=== PATIENT | female | born 1995 | race Two or more races ===

== ENCOUNTER 2024-09-19 07:43 | Emergency (ER) | payer MEDICAID, OTHER ==
[~2024-09-19] VITALS: Ht 162.6 cm; Wt 96.1 kg
[2024-09-19 08:19] VITALS: BP 108/65; PULSE 79; RESP 12; TEMP 98.5; O2SAT 99
--- NOTE | 2024-09-19 08:29 | ED.PDOC ---
MANAGER ANIMAL HPI Comments A 29 YEAR OLD FEMALE PRESENTS TO THE ED WITH COMPLAINT OF VAGINAL SPOTTING DURING . PATIENT STATES SHE IS CURRENTLY ABOUT 6 WEEKS AND BEGAN TO EXPERIENCE VAGINAL SPOTTING EARLY TODAY IN THE MORNING. PATIENT ALSO NOTES SHE HAS MILD PAIN WITH URINATION. PATIENT DENIES HEMATURIA, FLANK PAIN, VAGINAL DISCHARGE, FEVER, CHILLS, SHORTNESS OF BREATH, CHEST PAIN, ABDOMINAL PAIN, NAUSEA, VOMITING, HEADACHE, OR OTHER COMPLAINTS. NO OTHER SYMPTOMS OR MODIFYING FACTORS AT THIS TIME. PATIENT IS ALERT, ORIENTED X 4, AND HAS STEADY GAIT. Chief Complaint: Time Seen by MD: 07:54 Reviewed Notes: Nurses Notes, Medications, Allergies Allergies: Coded Allergies: NO KNOWN ALLERGIES (Unverified , 09/19/24) Information Source: Patient Mode of Arrival: Ambulatory Timing: Days Prehospital treatment: None Severity: Moderate Vaginal Discharge: None Vaginal Lesions: None Bleeding Quality: Bright Red Vaginal Mass: None Onset Of Mass/Bleeding: Unknown Sexual Activity: Last Consensual [place]: Unknown Control: None History of: Current Blood Type: Unknown Symptoms of Possible : None Associated Signs and Symptoms: Vaginal Bleeding (VAGINAL SPOTTING) Past Medical History PAST MEDICAL HISTORY: Denies Surgical History: Denies all surgeries CONVERSION MAN History: No Pertinent CONVERSION MAN History Family History Family History: Reviewed,noncontributory to illness Social History Smoker: Non-Smoker Alcohol: Denies ETOH Use Drugs: Denies Drug Use Lives In: Home Constitutional: denies: chills, diaphoresis, fatigue, fever, malaise, sweats, weakness, others EENTM: denies: blurred vision, double vision, ear bleeding, ear discharge, ear drainage, ear pain, ear ringing, eye pain, eye redness, hearing loss, mouth pain, mouth swelling, nasal discharge, nose bleeding, nose congestion, nose pain, photophobia, tearing, throat pain, throat swelling, voice changes, others Respiratory: denies: cough, hemoptysis, orthopnea, SOB at rest, shortness of breath, SOB with excertion, stridor, wheezing, others Cardiovascular: denies: chest pain, dizzy spells, diaphoresis, Dyspnea on exertion, edema, irregular heart beat, left arm pain, lightheadedness, palpitations, PND, syncope, others Gastrointestinal: denies: abdomen distended, abdominal pain, blood streaked bowels, constipated, diarrhea, dysphagia, difficulty swallowing, hematemesis, melena, nausea, poor appetite, poor fluid intake, rectal bleeding, rectal pain, vomiting, others Genitourinary: reports: abnormal vagina bleeding (VAGINAL SPOTTING), ; denies: burning, dyspareunia, dysuria, flank pain, frequency, hematuria, incontinence, pain, vagina discharge, urgency, others Neurological: denies: dizziness, fainting, headache, left sided numbness, left sided weakness, numbness, paresthesia, pre-existing deficit, right sided numbness, right sided weakness, seizure, speech problems, tingling, tremors, weakness, others Musculoskeletal: denies: back pain, gout, joint pain, joint swelling, muscle pain, muscle stiffness, neck pain, others Integumetry: denies: bruises, change in color, change in hair/nails, dryness, laceration, lesions, lumps, rash, wounds, others Allergic/Immunocompromised: denies: Difficulty Healing, Frequent Infections, Hives, Itching, others Hematologic/Lymphatic: denies: anemia, blood clots, easy bleeding, easy bruising, swollen glands, others Endocrine: denies: excessive hunger, excessive sweating, excessive thirst, excessive urination, flushing, intolerance to cold, intolerance to heat, unexplained weight gain, unexplained weight loss, others Psychiatric: denies: anxiety, bipolar disorder, depression, hopeless, panic disorder, schizophrenia, sleepless, suicidal, others All Other Systems: Reviewed and Negative Physical Exam General Appearance: No Apparent Distress, Normal HEENT: Normal ENT Inspection, PERRL/EOMI, Pharynx Normal, TMs Normal Neck: Full Range of Motion, Non-Tender, Normal, Normal Inspection Respiratory: Chest Non-Tender, Lungs Clear, No Accessory Muscle Use, No Respiratory Distress, Normal Breath Sounds Cardiovascular: No Edema, No JVD, No Murmur, No Gallop, Normal Peripheral Pulses, Regular Rate/Rhythm Breast Exam: Deferred Gastrointestinal: No Organomegaly, Non Tender, No Pulsatile Mass, Normal Bowel Sounds, Soft Genitalia: Deferred Pelvic: Normal External Exam, Vaginal Bleeding (VAGINAL SPOTTING, NO VAGINAL BLEEDING AND BLOOD CLOTS. ) Rectal: Deferred Extremities: No calf tenderness, Normal capillary refill, Normal inspection, Normal range of motion, Non-tender, No pedal edema Musculoskeletal : Apperance: Normal Neurologic: Alert, sequins slinger II-XII nml as Tested, No Motor Deficits, Normal Affect, Normal Mood, No Sensory Deficits Cerebellar Function: Normal Reflexes: Normal Skin: Dry, Normal Color, Warm Peripheral Pulses: 2+ carotid (R), 2+ carotid (L) Lymphatic: No Adenopathy Was a procedure done? Was a procedure done?: No Differential Diagnosis (CONVERSION MAN) Vaginal Bleeding: - Complete, - Incomplete, - Missed, - Threatened, Ectopic , Menorrhagia, UTI, Vaginitis Mass / Lesion: N/A Vaginal Discharge: N/A X-Ray, Labs, Meds, VS Vital Signs Date Time Temp Pulse Resp B/P (MAP) Pulse Ox O2 Delivery O2 Flow Rate FiO2 09/19/24 08:19 98.5 79 12 108/65 (79) 99 98.5 09/19/24 08:19 79 12 99 Room Air 09/19/24 08:06 98.5 79 12 108/65 (79) 99 Lab Test 09/19/24 08:25 09/19/24 08:20 Range/Units White Blood Count 9.2 4.4-10.8 10^3/uL Red Blood Count 4.34 4.0-5.20 10^6/uL Hemoglobin 12.1 L 12.2-16.2 g/dL Hematocrit 36.6 36.0-46.0 % Mean Corpuscular Volume 84.5 80.0-100.0 fL Mean Corpuscular Hemoglobin 28.0 28.0-32.0 pg Mean Corpuscular Hemoglobin Concent 33.1 32.0-36.0 g/dL Red Cell Distribution Width 13.3 11.8-14.3 % Platelet Count 323 140-450 10^3/uL Mean Platelet Volume 8.6 6.9-10.8 fL Neutrophils (%) (Auto) 69.7 37.0-80.0 % Lymphocytes (%) (Auto) 24.7 10.0-50.0 % Monocytes (%) (Auto) 4.8 0.0-12.0 % Eosinophils (%) (Auto) 0.5 0.0-7.0 % Basophils (%) (Auto) 0.3 0.0-2.0 % Neutrophils # (Auto) 6.4 1.6-8.6 10 ^3/uL Lymphocytes # (Auto) 2.3 0.4-5.4 10 ^3/uL Monocytes # (Auto) 0.4 0-1.3 10 ^3/uL Eosinophils # (Auto) 0 0-0.8 10 ^3/uL Basophils # (Auto) 0 0-0.2 10 ^3/uL Nucleated Red Blood Cells 0.1 % Beta HCG, Quantitative 78609.2 H 1.5-4.2 mIU/mL Urine Color Light-yellow Yellow Urine Clarity Clear Clear Urine pH 7.0 5.0-9.0 Urine Specific [place] 1.008 1.001-1.035 Urine Protein Negative Negative Urine Ketones Negative Negative Urine Blood 3+ H Negative /uL Urine Nitrite Negative Negative Urine Bilirubin Negative Negative Urine Urobilinogen Normal Negative mg/dL Urine Leukocyte Esterase Negative Negative /uL Urine RBC 1 0 - 4 /hpf Urine WBC 1 0 - 5 /hpf Urine Squamous Epithelial Cells Few <5 /hpf Urine Bacteria Few H None Seen /hpf Urine Glucose Normal Normal mg/dL INDICATION: Vaginal spotting TECHNIQUE: Multiple real-time grayscale transabdominal sonographic images along with color and duplex Doppler of the uterus and ovaries were obtained. COMPARISON: None FINDINGS: The uterus measures 11.6 x 6.2 x 5.1 cm. Small gestational sac and yolk sac seen, corresponding to an estimated gestational age of 5 weeks 3 days. No pole seen at this time. Right ovary measures 2.7 x 1.7 x 2.0 cm with normal Doppler color flow Left ovary measures 4.1 x 3.2 x 2.8 cm with normal Doppler color flow. Simple cyst seen in the left ovary measuring 2.3 x 1.9 x 1.9 cm. IMPRESSION: 1. Small gestational sac and yolk sac seen corresponding to an estimated gestational age of 5 weeks, 3 days. No pole seen at this time. 2. No acute findings identified. ATED BY: ROGERIO CHILDS MD DICTATED DATE/TIME: 09/19/24 103 SIGNED BY: ROGERIO CHILDS MD SIGNED DATE/TIME: 09/19/24 103 CC: X-Ray, Labs, Meds, VS Comment LABS ORDERED: CBC, BMP, UA, URINE , BETA HCG QUANT REVIEWED AND INTERPRETED RESULTS: HCG QUANT 16,181.2, BLOOD 3+ Images Reviewed?: Images reviewed and evaluated by me Time of 1ST Reevaluation: 10:50 Reevaluation 1ST: Improved Patient Education/Counseling: Diagnosis, Treatment, Need For Follow Up Family Education/Counseling: Diagnosis, Treatment, Need For Follow Up Medical Screening: No EMC Exist At This Time Departure 1 Departure Time of Disposition: 11:00 Impression: Primary Impression: Vaginal spotting Additional Impression: Threatened in first trimester Disposition: HOME / SELF CARE / HOMELESS Condition: Stable Additional Instructions: FOLLOW-UP WITH PCP AND MANAGER ANIMAL IN 1 TO 2 DAYS. RETURN TO ED FOR ANY NEW OR WORSENING SYMPTOMS. Discharged With: Self Critical Care Note Critical Care Time?: No Stability Stability form required: No I personally scribed for TAYLOR COOMBS ([email or web address]) on 09/19/24 at 08:29. Electronically submitted by Ben Slater (Alter[employer]G). I personally scribed for TAYLOR COOMBS ([email or web address]) on 09/19/24 at 10:38. Electronically submitted by Ben Slater (Alter-G). I personally scribed for TAYLOR COOMBS ([email or web address]) on 09/19/24 at 10:38. Electronically submitted by Ben Slater (Alter-G). TAYLOR COOMBS Sep 19, 2024 08:29
[2024-09-19 08:39] LABS: Urine Bacteria FEW /hpf (None Seen); Urine Blood 3+ /uL (Negative); Urine Clarity Clear (Clear); Urine Color Light-Yellow (Yellow); Urine Protein, UAD Negative (Negative); Urine Specific Gravity 1.008 (1.001-1.035); Urine Urobilinogen Normal (Negative); Urine WBC 1 /hpf (0 - 5)
[2024-09-19 08:57] LABS: Basophils # (auto) 0 10 ^3/uL (0-0.2); Basophils % (auto) 0.3 % (0.0-2.0); Eosinophils # (auto) 0 10 ^3/uL (0-0.8); Eosinophils % (auto) 0.5 % (0.0-7.0); Hematocrit 36.6 % (36.0-46.0); Hemoglobin 12.1 g/dL (12.2-16.2); Lymphocytes # (auto) 2.3 10 ^3/uL (0.4-5.4); Lymphocytes % (auto) 24.7 % (10.0-50.0); Mean Corpuscular Hgb Conc. 33.1 g/dL (32.0-36.0); Mean Corpuscular Volume 84.5 fL (80.0-100.0); Monocytes # (auto) 0.4 10 ^3/uL (0-1.3); Monocytes % (auto) 4.8 % (0.0-12.0); Neutrophils # (auto) 6.4 10 ^3/uL (1.6-8.6); Neutrophils % (auto) 69.7 % (37.0-80.0); Nucleated Red Blood Cells % 0.1 %; Platelet Count (auto) 323 10^3/uL (140-450); Red Blood Cells 4.34 10^6/uL (4.0-5.20); Red Cell Distribution Width 13.3 % (11.8-14.3); White Blood Cell 9.2 10^3/uL (4.4-10.8)
--- NOTE | 2024-09-19 10:37 | DVH ---
INDICATION: Vaginal spotting TECHNIQUE: Multiple real-time grayscale transabdominal sonographic images along with color and duplex Doppler of the uterus and ovaries were obtained. COMPARISON: None FINDINGS: The uterus measures 11.6 x 6.2 x 5.1 cm. Small gestational sac and yolk sac seen, corresponding to an estimated gestational age of 5 weeks 3 d ays. No pole seen at this time. Right ovary measures 2.7 x 1.7 x 2.0 cm with normal Doppler color flow Left ovary measures 4.1 x 3.2 x 2.8 cm with normal Doppler color flow. Simple cyst seen in the left ovary measuring 2.3 x 1.9 x 1.9 cm. IMPRESSION: 1. Small gestational sac and yolk sac seen corresponding to an estimated gestational age of 5 weeks, 3 days. No pole seen at this time. 2. No acute findings identified.
== END 2024-09-19 10:56 | disposition home or self-care (01) ==
LOC: ER 07:43
DX: O20.0 Threatened abortion (principal); R10.2 Pelvic and perineal pain; Z3A.01 Less than 8 weeks gestation of pregnancy
CPT/HCPCS: 36415; 76801; 81001; 84702; 85025

== ENCOUNTER 2024-09-26 20:45 | Emergency (ER) | payer MEDICAID ==
[~2024-09-26] VITALS: Ht 162.6 cm; Wt 97.4 kg
[2024-09-26 21:14] VITALS: BP 106/47; PULSE 70; RESP 16; O2SAT 99
[2024-09-26] MEDS ORDERED: MAALOX PLUS or MAALOX 30 ML PO ONE (21:45)
[2024-09-26] MEDS ORDERED: METOCLOPRAMIDE HCL 10 MG TAB PO ONE (21:45)
[2024-09-26] MEDS ORDERED: FAMOTIDINE 20 MG TAB PO ONE (21:45)
--- NOTE | 2024-09-26 21:47 | ED.PDOC ---
GI ASSESSMENT HPI Comments 29-year-old female who came to ER due to abdominal pain. Is a , approximately 7 weeks . States for the past few hours she has been experiencing aching, intermittent, epigastric abdominal pain, associated nausea. Denies any vaginal bleeding or urinary symptoms Chief Complaint: Abdominal Pain Time Seen by MD: 21:47 Reviewed Notes: Nurses Notes Allergies: Coded Allergies: NO KNOWN ALLERGIES (Unverified , 09/19/24) Information Source: Patient Mode of Arrival: Ambulatory Timing: Hours Duration: Since onset Prehospital treatment: None Quality: Aching Vomitus: None Stool: Normal Severity: Mild Recent: None Recent Hx of: Current Pain Location: Epigastric Modifying Factors: Nothing Associated sign and symptoms: Nausea, Abdominal Pain Past Medical History PAST MEDICAL HISTORY: Denies Surgical History: Denies all surgeries SUBASSEMBLY ASSEMBLER History: No Pertinent SUBASSEMBLY ASSEMBLER History Family History Family History: Reviewed,noncontributory to illness Social History Smoker: Non-Smoker Alcohol: Denies ETOH Use Drugs: Denies Drug Use Lives In: Home Constitutional: denies: chills, diaphoresis, fatigue, fever, malaise, sweats, weakness, others EENTM: denies: blurred vision, double vision, ear bleeding, ear discharge, ear drainage, ear pain, ear ringing, eye pain, eye redness, hearing loss, mouth pain, mouth swelling, nasal discharge, nose bleeding, nose congestion, nose pain, photophobia, tearing, throat pain, throat swelling, voice changes, others Respiratory: denies: cough, hemoptysis, orthopnea, SOB at rest, shortness of breath, SOB with excertion, stridor, wheezing, others Cardiovascular: denies: chest pain, dizzy spells, diaphoresis, Dyspnea on exertion, edema, irregular heart beat, left arm pain, lightheadedness, palpitations, PND, syncope, others Gastrointestinal: reports: abdominal pain, nausea; denies: abdomen distended, blood streaked bowels, constipated, diarrhea, dysphagia, difficulty swallowing, hematemesis, melena, poor appetite, poor fluid intake, rectal bleeding, rectal pain, vomiting, others Genitourinary: denies: abnormal vagina bleeding, burning, dyspareunia, dysuria, flank pain, frequency, hematuria, incontinence, pain, , vagina discharge, urgency, others Neurological: denies: dizziness, fainting, headache, left sided numbness, left sided weakness, numbness, paresthesia, pre-existing deficit, right sided numbness, right sided weakness, seizure, speech problems, tingling, tremors, weakness, others Musculoskeletal: denies: back pain, gout, joint pain, joint swelling, muscle pain, muscle stiffness, neck pain, others Integumetry: denies: bruises, change in color, change in hair/nails, dryness, laceration, lesions, lumps, rash, wounds, others Allergic/Immunocompromised: denies: Difficulty Healing, Frequent Infections, Hives, Itching, others Hematologic/Lymphatic: denies: anemia, blood clots, easy bleeding, easy bruising, swollen glands, others Endocrine: denies: excessive hunger, excessive sweating, excessive thirst, excessive urination, flushing, intolerance to cold, intolerance to heat, unexplained weight gain, unexplained weight loss, others Psychiatric: denies: anxiety, bipolar disorder, depression, hopeless, panic disorder, schizophrenia, sleepless, suicidal, others Physical Exam General Appearance: Mild Distress, Normal HEENT: Normal ENT Inspection, Pharynx Normal, TMs Normal Neck: Full Range of Motion, Non-Tender, Normal, Normal Inspection Respiratory: Chest Non-Tender, Lungs Clear, No Accessory Muscle Use, No Respiratory Distress, Normal Breath Sounds Cardiovascular: No Edema, No JVD, No Murmur, No Gallop, Normal Peripheral Pulses, Regular Rate/Rhythm Breast Exam: Deferred Gastrointestinal: Epigastric, No Organomegaly, Soft, Tenderness Genitalia: Deferred Pelvic: Deferred Rectal: Deferred Extremities: No calf tenderness, Normal capillary refill, Normal inspection, Normal range of motion, Non-tender, No pedal edema Musculoskeletal : Apperance: Normal Neurologic: Alert, suggestion clerk II-XII nml as Tested, No Motor Deficits, Normal Affect, Normal Mood, No Sensory Deficits Cerebellar Function: Normal Reflexes: Normal Skin: Dry, Normal Color, Warm Lymphatic: No Adenopathy Was a procedure done? Was a procedure done?: No GI differential Dx Differential Diagnosis: Constipation, Gastritis/PUD, Gastroenteritis, UTI, X-Ray, Labs, Meds, VS Vital Signs Date Time Temp Pulse Resp B/P (MAP) Pulse Ox O2 Delivery O2 Flow Rate FiO2 09/26/24 21:14 96.7 70 16 106/47 (66) 99 Time of 1ST Reevaluation: 21:44 Reevaluation 1ST: Unchanged Patient Education/Counseling: Diagnosis, Treatment Family Education/Counseling: No Family Present Departure 1 Departure Time of Disposition: 23:00 Impression: Primary Impression: Upper abdominal pain Additional Impression: 7 weeks gestation of Disposition: 01 HOME / SELF CARE / HOMELESS Condition: Stable Discharged With: Self Critical Care Note Critical Care Time?: No Stability Stability form required: No Heart Score Heart Score: Heart Score Response (Comments) Value History N/A 0 EKG N/A 0 Age N/A 0 Risk Factors N/A 0 Troponin N/A 0 Total 0 I personally scribed for WINNIE FRANK MD ([email or web address]) on 09/26/24 at 21:47. Electronically submitted by Dilan Arita ([facility] WINNIE FRANK MD Sep 26, 2024 21:47
== END 2024-09-27 00:56 | disposition home or self-care (01) ==
LOC: ER 20:45
DX: O26.891 Other specified pregnancy related conditions, first trimester (principal); R10.13 Epigastric pain; Z3A.01 Less than 8 weeks gestation of pregnancy

== ENCOUNTER 2025-01-15 02:54 | Emergency (ER) | payer MEDICAID ==
[~2025-01-15] VITALS: Ht 162.6 cm; Wt 97.5 kg
[2025-01-15 03:05] VITALS: BP 98/58; PULSE 75; RESP 16; O2SAT 99
--- NOTE | 2025-01-15 04:37 | ED.PDOC ---
Eye-HPI Chief Complaint: Tooth Pain Time Seen by MD: 03:13 Reviewed Notes: Nurses Notes, Medications, Allergies Allergies: Coded Allergies: NO KNOWN ALLERGIES (Unverified , 09/19/24) Information Source: Patient Mode of Arrival: Ambulatory Past Medical History PAST MEDICAL HISTORY: Denies Surgical History: Denies all surgeries STUDENT FINANCE ADVISOR History: No Pertinent STUDENT FINANCE ADVISOR History Family History Family History: Reviewed,noncontributory to illness Social History Smoker: Non-Smoker Alcohol: Denies ETOH Use Drugs: Denies Drug Use Lives In: Home Physical Exam General Appearance: No Apparent Distress, Normal HEENT: Normal ENT Inspection, Pharynx Normal, TMs Normal Neck: Full Range of Motion, Non-Tender, Normal, Normal Inspection Respiratory: Chest Non-Tender, Lungs Clear, No Accessory Muscle Use, No Respiratory Distress, Normal Breath Sounds Cardiovascular: No Edema, No JVD, No Murmur, No Gallop, Normal Peripheral Pulses, Regular Rate/Rhythm Breast Exam: Deferred Gastrointestinal: No Organomegaly, Non Tender, No Pulsatile Mass, Normal Bowel Sounds, Soft Genitalia: Deferred Pelvic: Deferred Rectal: Deferred Extremities: No calf tenderness, Normal capillary refill, Normal inspection, Normal range of motion, Non-tender, No pedal edema Musculoskeletal : Apperance: Normal Neurologic: Alert, field cane scaler helper II-XII nml as Tested, No Motor Deficits, Normal Affect, Normal Mood, No Sensory Deficits Cerebellar Function: Normal Reflexes: Normal Skin: Dry, Normal Color, Warm Lymphatic: No Adenopathy X-Ray, Labs, Meds, VS Vital Signs Date Time Temp Pulse Resp B/P (MAP) Pulse Ox O2 Delivery O2 Flow Rate FiO2 01/15/25 03:05 98.2 75 16 98/58 (71) 99 Reevaluation 1ST: Improved Patient Education/Counseling: Diagnosis, Treatment, Prognosis, Need For Follow Up Family Education/Counseling: Diagnosis, Treatment, Prognosis, Need For Follow Up Departure 1 Departure Time of Disposition: 04:39 Impression: Primary Impression: Dental infection Disposition: 01 HOME / SELF CARE / HOMELESS Condition: Stable e-Prescriptions Amoxicillin Trihydrate (Amoxicillin) 500 Mg Cap 1 CAP PO BID for 7 Days, #14 CAP Prov: SYL BABCOCK 01/15/25 Discharged With: Significant Other Critical Care Note Critical Care Time?: No Stability Stability form required: SYL Gilbert Jan 15, 2025 04:37
[2025-01-15] MEDS ORDERED: KETOROLAC TROMETH 60MG/2ML VIAL IM ONE (04:45)
[2025-01-15] MEDS ORDERED: HYDROcodone-ACET 5/325MG TAB PO ONE (04:45)
[2025-01-15] MEDS ORDERED: AMOX500C2 PO (04:50)
[2025-01-15] MEDS: BENZOCAINE (DENTAL) 20 % SPRAY 60ML MT ONE ×2 (04:55)
[2025-01-15] MEDS: ACETAMINOPHEN 500 MG TAB or CAP PO ONE (04:55)
== END 2025-01-15 05:02 | disposition home or self-care (01) ==
LOC: ER 02:54
DX: K04.7 Periapical abscess without sinus (principal)

== ENCOUNTER 2025-06-21 07:48 | Inpatient (IN) | payer MEDICAID ==
[~2025-06-21] VITALS: Ht 162.6 cm; Wt 92.4 kg
--- NOTE | 2025-06-21 08:11 | ED.PDOC ---
GI ASSESSMENT HPI Comments 29 y/o F, with recent Shx cesarian presents to the ED for CC of abdominal pain. Patient states, she has been experiencing epigastric abdominal pain with associated nausea and vomiting sudden onset, 0500 this morning (06/21/25). Patient further reports, associated symptoms of nausea and vomiting with emesis being green in appearance. Patient denies recent change in diet, consumption of possible spoiled food, fever, sweats, chills, or diarrhea. No other symptoms or modifiers are present at this time. Chief Complaint: Abdominal Pain Time Seen by MD: 08:00 Reviewed Notes: Nurses Notes, Medications, Allergies Allergies: Coded Allergies: NO KNOWN ALLERGIES (Unverified , 09/19/24) Home Meds No Active Prescriptions or Reported Meds Information Source: Patient Mode of Arrival: Ambulatory Timing: Hours Duration: Since onset Prehospital treatment: None Quality: None Vomitus: Watery Stool: Normal Severity: Moderate Recent: None Recent Hx of: Abdominal Operations () Pain Location: Diffuse Modifying Factors: Nothing Associated sign and symptoms: Nausea, Vomiting, Abdominal Pain Past Medical History PAST MEDICAL HISTORY: Denies 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 History Family History Family History: Reviewed,noncontributory to illness Social History Smoker: Non-Smoker Alcohol: Denies ETOH Use Drugs: Denies Drug Use Lives In: Home Constitutional: denies: chills, diaphoresis, fatigue, fever, malaise, sweats, weakness, others EENTM: denies: blurred vision, double vision, ear bleeding, ear discharge, ear drainage, ear pain, ear ringing, eye pain, eye redness, hearing loss, mouth pain, mouth swelling, nasal discharge, nose bleeding, nose congestion, nose pain, photophobia, tearing, throat pain, throat swelling, voice changes, others Respiratory: denies: cough, hemoptysis, orthopnea, SOB at rest, shortness of breath, SOB with excertion, stridor, wheezing, others Cardiovascular: denies: chest pain, dizzy spells, diaphoresis, Dyspnea on exertion, edema, irregular heart beat, left arm pain, lightheadedness, palpitations, PND, syncope, others Gastrointestinal: reports: abdominal pain, nausea, vomiting; denies: abdomen distended, blood streaked bowels, constipated, diarrhea, dysphagia, difficulty swallowing, hematemesis, melena, poor appetite, poor fluid intake, rectal bleeding, rectal pain, others Genitourinary: denies: abnormal vagina bleeding, burning, dyspareunia, dysuria, flank pain, frequency, hematuria, incontinence, pain, , vagina discharge, urgency, others Neurological: denies: dizziness, fainting, headache, left sided numbness, left sided weakness, numbness, paresthesia, pre-existing deficit, right sided numbness, right sided weakness, seizure, speech problems, tingling, tremors, weakness, others Musculoskeletal: denies: back pain, gout, joint pain, joint swelling, muscle pain, muscle stiffness, neck pain, others Integumetry: denies: bruises, change in color, change in hair/nails, dryness, laceration, lesions, lumps, rash, wounds, others Allergic/Immunocompromised: denies: Difficulty Healing, Frequent Infections, Hives, Itching, others Hematologic/Lymphatic: denies: anemia, blood clots, easy bleeding, easy bruising, swollen glands, others Endocrine: denies: excessive hunger, excessive sweating, excessive thirst, excessive urination, flushing, intolerance to cold, intolerance to heat, unexplained weight gain, unexplained weight loss, others Psychiatric: denies: anxiety, bipolar disorder, depression, hopeless, panic disorder, schizophrenia, sleepless, suicidal, others All Other Systems: Reviewed and Negative Physical Exam General Appearance: Moderate Distress HEENT: Normal ENT Inspection, Pharynx Normal, TMs Normal Neck: Full Range of Motion, Non-Tender, Normal, Normal Inspection Respiratory: Chest Non-Tender, Lungs Clear, No Accessory Muscle Use, No Respiratory Distress, Normal Breath Sounds Cardiovascular: No Edema, No JVD, No Murmur, No Gallop, Normal Peripheral Pulses, Regular Rate/Rhythm Breast Exam: Deferred Gastrointestinal: Diffuse Genitalia: Deferred Pelvic: Deferred Rectal: Deferred Extremities: No calf tenderness, Normal capillary refill, Normal inspection, Normal range of motion, Non-tender, No pedal edema Musculoskeletal : Apperance: Normal Neurologic: Alert, manager metrology II-XII nml as Tested, No Motor Deficits, Normal Affect, Normal Mood, No Sensory Deficits Cerebellar Function: Normal Reflexes: Normal Skin: Dry, Normal Color, Warm Peripheral Pulses: 3+ Radial (R), 3+ Radial (L) Lymphatic: No Adenopathy Was a procedure done? Was a procedure done?: No GI differential Dx Differential Diagnosis: Constipation, Diverticular disease, Esophagitis, Gastritis/PUD, Gastroenteritis, Electrolyte Imbalance, Food Poisoning, Bacterial, Viral X-Ray, Labs, Meds, VS Vital Signs Date Time Temp Pulse Resp B/P (MAP) Pulse Ox O2 Delivery O2 Flow Rate FiO2 06/21/25 10:38 94 Room Air* 0 21 06/21/25 10:01 81 17 98 Room Air* 0 21 06/21/25 10:00 98.7 81 17 94/52 (66) 98 98.7 06/21/25 07:50 98.1 78 16 116/51 98 98.1 Lab Test 06/21/25 08:04 06/21/25 08:01 Range/Units Urine Color Yellow Yellow Urine Clarity Clear Clear Urine pH 5.5 5.0-9.0 Urine Specific [place] 1.021 1.001-1.035 Urine Protein Negative Negative Urine Ketones Negative Negative Urine Blood 1+ H Negative /uL Urine Nitrite Negative Negative Urine Bilirubin Negative Negative Urine Urobilinogen Normal Negative mg/dL Urine Leukocyte Esterase Negative Negative /uL Urine RBC 3 0 - 4 /hpf Urine Microscopic WBC 1 0-5 /HPF Urine Squamous Epithelial Cells Few <5 /hpf Urine Bacteria None seen None Seen /hpf Urine Mucus Few None Seen Urine Glucose Normal Normal mg/dL White Blood Count 18.5 H 4.4-10.8 10^3/uL Red Blood Count 4.86 4.0-5.20 10^6/uL Hemoglobin 12.0 L 12.2-16.2 g/dL Hematocrit 38.0 36.0-46.0 % Mean Corpuscular Volume 78.2 L 80.0-100.0 fL Mean Corpuscular Hemoglobin 24.8 L 28.0-32.0 pg Mean Corpuscular Hemoglobin Concent 31.7 L 32.0-36.0 g/dL Red Cell Distribution Width 16.7 H 11.8-14.3 % Platelet Count 353 140-450 10^3/uL Mean Platelet Volume 8.9 6.9-10.8 fL Neutrophils (%) (Auto) 85.7 H 37.0-80.0 % Lymphocytes (%) (Auto) 9.2 L 10.0-50.0 % Monocytes (%) (Auto) 4.4 0.0-12.0 % Eosinophils (%) (Auto) 0.4 0.0-7.0 % Basophils (%) (Auto) 0.3 0.0-2.0 % Neutrophils # (Auto) 15.8 H 1.6-8.6 10 ^3/uL Lymphocytes # (Auto) 1.7 0.4-5.4 10 ^3/uL Monocytes # (Auto) 0.8 0-1.3 10 ^3/uL Eosinophils # (Auto) 0.1 0-0.8 10 ^3/uL Basophils # (Auto) 0.1 0-0.2 10 ^3/uL Nucleated Red Blood Cells 0.0 % Sodium Level 140 136-145 mmol/L Potassium Level 4.0 3.5-5.1 mmol/L Chloride Level 107 98-107 mmol/L Carbon Dioxide Level 23 20-31 mmol/L Anion Gap 10 5-15 Blood Urea Nitrogen 9 9-23 mg/dL Creatinine 0.61 0.550-1.02 mg/dL Glomerular Filtration Rate Calc 123 >90 mL/min BUN/Creatinine Ratio 14.8 10.0-20.0 Serum Glucose 96 74-106 mg/dL Calcium Level 9.4 8.7-10.4 mg/dL Current Medications Medications (Trade) Dose Ordered Sig/Jeanne Route Start Time Stop Time Status Last Admin Ceftriaxone Sodium 50 ml @ 100 mls/hr ONCE ONCE IV 06/21/25 08:45 06/21/25 09:14 DC 06/21/25 09:56 Metronidazole 100 ml @ 100 mls/hr ONCE ONCE IV 06/21/25 08:45 06/21/25 09:44 DC 06/21/25 10:33 Patient alert. Complaining of abdominal pain. WBC elevated. Vitals stable. Answering questions. Establish intravenous access. Was given fluids. Was given Rocephin. Was given Flagyl. Explained to the patient. Continue monitoring. [address] [address] Ph: [phone] DIAGNOSTIC IMAGING Diagnostic Imaging Report : [id number] Signed PATIENT: SUSAN VALDESACCT: [id number] UNIT: [id number] : 1995 LOC: ER ROOM / BED: / AGE / SEX: 29 / F ADM STATUS: REG ER SERVICE [id number] ORDERING PHYSICIAN: CHAY PATEL MD PROCEDURE(s): ABPL - CT AB PEL WO CON-NO ORAL OR IV REASON: colitis ORDER NUMBER(s): [id number], ACCESSION NUMBER(s): [id number] EXAM: CT CT AB PEL WO CON-NO ORAL OR IV HISTORY: colitis COMPARISON: None TECHNIQUE: Helical CT images of the abdomen and pelvis were performed without IV contrast. Sagittal and coronal reformatted images were obtained. This CT exam was performed using one or more of the following dose reduction techniques: Automated exposure control, adjustment of the mA and/or kv according to patient size, or the use of iterative reconstruction techniques. Radiation Dose: Abdomen/Pelvis: CTDIvol 18.2 mGy, DLP 1013.67 mGy*cm. FINDINGS: CT abdomen: The lung bases are clear. The heart is not enlarged. The liver measures 20 cm longitudinal. The spleen measures 12 cm longitudinal. The noncontrast spleen, gallbladder, pancreas, kidneys, and adrenal glands are unremarkable. No abdominal aortic aneurysm. CT pelvis: No abnormal bowel dilatation, free air, or free fluid. There is fecal retention in the colon. The appendix and urinary bladder are unremarkable. There are postoperative changes of section surgery. There is [id number] lumbar degenerative disc disease and facet arthropathy. IMPRESSION: 1. Hepatomegaly and borderline splenomegaly. 2. Fecal retention in the colon suggestive of constipation. 3. Postoperative changes of section surgery. 4. No evidence of bowel obstruction, acute appendicitis, or other acute process in the abdomen or pelvis. ATED BY: AKSHAT COOLEY MD DICTATED DATE/TIME: 06/21/25 1011 SIGNED BY: AKSHAT COOLEY MD SIGNED DATE/TIME: 06/21/25 1011 CC: Time of 1ST Reevaluation: 08:30 Reevaluation 1ST: Unchanged Patient Education/Counseling: Diagnosis, Treatment Family Education/Counseling: No Family Present SEPSIS Sepsis Screen Date sepsis recognized/suspect: Jun 21, 2025 Time Sepsis recognized/suspect: 0750 Recent Procedure: No Respiratory Rate >20: No Heart Rate >90: No Temp<36 C (96.8 F) or >38.3 C: No SBP <90 or MAP <65 mmHG: No New Acute Mental Status Change: No Is the patient on CPAP, BIPAP,: No Physician Orders Ct Ab Pel Wo Con-No Oral Or Iv (06/21/25 08:45) Vital Signs Date Time Temp Pulse Resp B/P (MAP) Pulse Ox O2 Delivery O2 Flow Rate FiO2 06/21/25 10:38 94 Room Air* 0 21 06/21/25 10:01 81 17 98 Room Air* 0 21 06/21/25 10:00 98.7 81 17 94/52 (66) 98 98.7 06/21/25 07:50 98.1 78 16 116/51 98 98.1 Laboratory Tests Test 06/21/25 08:01 White Blood Count 18.5 10^3/uL (4.4-10.8) H Medications Medications Dose Ordered Sig/Jeanne Route Start Time Stop Time Status Last Admin Dose Admin Ceftriaxone Sodium 50 ml @ 100 mls/hr ONCE ONCE IV 06/21/25 08:45 06/21/25 09:14 DC 06/21/25 09:56 Metronidazole 100 ml @ 100 mls/hr ONCE ONCE IV 06/21/25 08:45 06/21/25 09:44 DC 06/21/25 10:33 Departure 1 Departure Time of Disposition: 08:44 Impression: Primary Impression: Acute abdominal pain Disposition: ADMITTED INPATIENT Admit to: Med Surg Condition: Guarded e-Prescriptions No Active Prescriptions or Reported Meds Critical Care Note Critical Care Time?: No Stability Stability form required: No Heart Score Heart Score: Heart Score Response (Comments) Value History N/A 0 EKG N/A 0 Age N/A 0 Risk Factors N/A 0 Troponin N/A 0 Total 0 I personally scribed for CHAY PATEL MD ([email or web address]) on 06/21/25 at 08:11. Electronically submitted by Ligia Gaston ([employer]). I personally scribed for CHAY PATEL MD ([email or web address]) on 06/21/25 at 10:55. Electronically submitted by Ligia Gaston ([employer]). CHAY PATEL MD Jun 21, 2025 08:11
[2025-06-21 08:27] LABS: Urine Protein, UAD Negative (Negative)
[2025-06-21 08:28] LABS: Chloride 107 mmol/L (98-107); Hemoglobin 12.0 g/dL (12.2-16.2); Nucleated Red Blood Cells % 0.0 %; Potassium 4.0 mmol/L (3.5-5.1); Sodium 140 mmol/L (136-145)
[2025-06-21 08:29] LABS: Anion Gap 10 (5-15); Carbon Dioxide 23 mmol/L (20-31); Hematocrit 38.0 % (36.0-46.0); Mean Corpuscular Hemoglobin 24.8 pg (28.0-32.0); Mean Corpuscular Volume 78.2 fL (80.0-100.0)
[2025-06-21 08:30] LABS: Calcium 9.4 mg/dL (8.7-10.4)
[2025-06-21 08:35] LABS: BUN/Creatinine Ratio 14.8 (10.0-20.0); Blood Urea Nitrogen 9 mg/dL (9-23); Glucose 96 mg/dL (74-106)
[2025-06-21] MEDS: cefTRIAXone 1GM/50ML D5W 50 ML IV ONE (09:56)
[2025-06-21 10:01] VITALS: PULSE 81; RESP 17; O2SAT 98
--- NOTE | 2025-06-21 10:14 | DVH ---
EXAM: CT CT AB PEL WO CON-NO ORAL OR IV HISTORY: colitis COMPARISON: None TECHNIQUE: Helical CT images of the abdomen and pelvis were performed without IV contrast. Sagittal a nd coronal reformatted images were obtained. This CT exam was performed using one or more of the foll owing dose reduction techniques: Automated exposure control, adjustment of the mA and/or kv according to patient size, or the use of iterative reconstruction techniques. Radiation Dose: Abdomen/Pelvis: CTDIvol 18.2 mGy, DLP 1013.67 mGy*cm. FINDINGS: CT abdomen: The lung bases are clear. The heart is not enlarged. The liver measures 20 cm longitudina l. The spleen measures 12 cm longitudinal. The noncontrast spleen, gallbladder, pancreas, kidneys, an d adrenal glands are unremarkable. No abdominal aortic aneurysm. CT pelvis: No abnormal bowel dilatation, free air, or free fluid. There is fecal retention in the col on. The appendix and urinary bladder are unremarkable. There are postoperative changes of se ction surgery. There is [id number] lumbar degenerative disc disease and facet arthropathy. IMPRESSION: 1. Hepatomegaly and borderline splenomegaly. 2. Fecal retention in the colon suggestive of constipation. 3. Postoperative changes of section surgery. 4. No evidence of bowel obstruction, acute appendicitis, or other acute process in the abdomen or pel vis.
[2025-06-21] MEDS ORDERED: HYDROcodone-ACET 5/325MG TAB PO PRN (12:00)
[2025-06-21] MEDS ORDERED: ONDANSETRON HCL 4 MG/2 ML VIAL IV PRN (12:00)
[2025-06-21] MEDS ORDERED: DOCUSATE SOD 100 MG CAP PO PRN (12:00)
[2025-06-21] MEDS ORDERED: ACETAMINOPHEN 325 MG TAB PO PRN (12:00)
[2025-06-21] MEDS ORDERED: MORPHINE SULFATE INJ 2 MG/ml SYRG IV PRN (12:00)
--- NOTE | 2025-06-21 12:16 | DVHHP2 ---
History of Present Illness Reason for Visit: Abdominal pain History of Present Illness Risa Natarajan is a 29-year-old female with no significant past medical history who came to the hospital for abdominal pain. Patient states she has epigastric abdominal pain that began this morning about 0500. She states the pain woke her up from sleeping, then she began having nausea and vomiting. She last ate yesterday (06/20/2025) about [address] scan shows hepatomegaly, borderline splenomegaly, and constipation, she states she had a small bowel movement yesterday that was hard. Past Surgical History: (x 2, last was on 02/15/2025) Smoke: No ALCOHOL: none Drugs: None Lives: with Family Domestic Violence: Neg Review of Systems Constitutional: No: Fever, Chills, Sweats, Weakness, Malaise, Other Eyes: No: Pain, Vision change, Conjunctivae inflammation, Eyelid inflammation, Other, Redness ENT: No: Ear pain, Ear discharge, Nose pain, Nose discharge, Nose congestion, Mouth pain, Mouth swelling, Throat pain, Throat swelling, Other Respiratory: No: Cough, Dry, Shortness of breath, SOB with excertion, Wheezing, Hemoptysis, Pleuritic Pain, Sputum, Wheezing, Other Cardiovascular: No: Chest Pain, Palpitations, Orthopnea, Paroxysmal Noc. Dyspnea, Edema, Lt Headedness, Other Gastrointestinal: Nausea, Vomiting, Abdominal Pain, Constipation; No: Diarrhea, Melena, Hematochezia, Other Genitourinary: No Dysuria, No Frequency, No Incontinence, No Hematuria, No Retention, No Other Musculoskeletal: No: other, neck pain, shoulder pain, arm pain, back pain, hand pain, leg pain, foot pain Skin: No: Rash, Lesions, Jaundice, Bruising, Other Neurological: No: Weakness, Numbness, Incoordination, Change in speech, Confusion, Seizures, Other Allergies: Coded Allergies: NO KNOWN ALLERGIES (Unverified , 09/19/24) Exam Vital Signs Vital Signs Date Time Temp Pulse Resp B/P (MAP) Pulse Ox O2 Delivery O2 Flow Rate FiO2 06/21/25 10:38 94 Room Air* 0 21 06/21/25 10:01 81 17 06/21/25 10:00 98.7 94/52 (66) 98.7 General Appearance: Alert, Oriented X3, Cooperative, mild distress HEENT: Atraumatic, PERRLA Respiratory: Clear to auscultation, Normal air movement Cardiovascular: Regular rate, Normal S1, Normal S2 Abdominal: Normal bowel sounds, Soft, Other (Epi gastric pain) Extremities: No clubbing, No cyanosis, No edema, Normal pulses, No tenderness/swelling Skin: No rashes, No breakdown, No significant lesion Neuro: Normal gait, Normal speech Psych/Mental Status: Mental status NL, Mood NL Labs/Xrays Labs Test 06/21/25 08:04 06/21/25 08:01 Range/Units Urine Color Yellow Yellow Urine Clarity Clear Clear Urine pH 5.5 5.0-9.0 Urine Specific [place] 1.021 1.001-1.035 Urine Protein Negative Negative Urine Ketones Negative Negative Urine Blood 1+ H Negative /uL Urine Nitrite Negative Negative Urine Bilirubin Negative Negative Urine Urobilinogen Normal Negative mg/dL Urine Leukocyte Esterase Negative Negative /uL Urine RBC 3 0 - 4 /hpf Urine Microscopic WBC 1 0-5 /HPF Urine Squamous Epithelial Cells Few <5 /hpf Urine Bacteria None seen None Seen /hpf Urine Mucus Few None Seen Urine Glucose Normal Normal mg/dL White Blood Count 18.5 H 4.4-10.8 10^3/uL Red Blood Count 4.86 4.0-5.20 10^6/uL Hemoglobin 12.0 L 12.2-16.2 g/dL Hematocrit 38.0 36.0-46.0 % Mean Corpuscular Volume 78.2 L 80.0-100.0 fL Mean Corpuscular Hemoglobin 24.8 L 28.0-32.0 pg Mean Corpuscular Hemoglobin Concent 31.7 L 32.0-36.0 g/dL Red Cell Distribution Width 16.7 H 11.8-14.3 % Platelet Count 353 140-450 10^3/uL Mean Platelet Volume 8.9 6.9-10.8 fL Neutrophils (%) (Auto) 85.7 H 37.0-80.0 % Lymphocytes (%) (Auto) 9.2 L 10.0-50.0 % Monocytes (%) (Auto) 4.4 0.0-12.0 % Eosinophils (%) (Auto) 0.4 0.0-7.0 % Basophils (%) (Auto) 0.3 0.0-2.0 % Neutrophils # (Auto) 15.8 H 1.6-8.6 10 ^3/uL Lymphocytes # (Auto) 1.7 0.4-5.4 10 ^3/uL Monocytes # (Auto) 0.8 0-1.3 10 ^3/uL Eosinophils # (Auto) 0.1 0-0.8 10 ^3/uL Basophils # (Auto) 0.1 0-0.2 10 ^3/uL Nucleated Red Blood Cells 0.0 % Sodium Level 140 136-145 mmol/L Potassium Level 4.0 3.5-5.1 mmol/L Chloride Level 107 98-107 mmol/L Carbon Dioxide Level 23 20-31 mmol/L Anion Gap 10 5-15 Blood Urea Nitrogen 9 9-23 mg/dL Creatinine 0.61 0.550-1.02 mg/dL Glomerular Filtration Rate Calc 123 >90 mL/min BUN/Creatinine Ratio 14.8 10.0-20.0 Serum Glucose 96 74-106 mg/dL Calcium Level 9.4 8.7-10.4 mg/dL EXAM: CT CT AB PEL WO CON-NO ORAL OR IV FINDINGS: CT abdomen: The lung bases are clear. The heart is not enlarged. The liver measures 20 cm longitudinal. The spleen measures 12 cm longitudinal. The noncontrast spleen, gallbladder, pancreas, kidneys, and adrenal glands are unremarkable. No abdominal aortic aneurysm. CT pelvis: No abnormal bowel dilatation, free air, or free fluid. There is fecal retention in the colon. The appendix and urinary bladder are unremarkable. There are postoperative changes of section surgery. There is [id number] lumbar degenerative disc disease and facet arthropathy. IMPRESSION: 1. Hepatomegaly and borderline splenomegaly. 2. Fecal retention in the colon suggestive of constipation. 3. Postoperative changes of section surgery. 4. No evidence of bowel obstruction, acute appendicitis, or other acute process in the abdomen or pelvis. SEPSIS Sepsis Screen Date sepsis recognized/suspect: Jun 21, 2025 Time Sepsis recognized/suspect: 1037 Recent Procedure: No On Antibiotic Therapy: No Respiratory Rate >20: No Heart Rate >90: No Temp<36 C (96.8 F) or >38.3 C: No SBP <90 or MAP <65 mmHG: No New Acute Mental Status Change: No Is the patient on CPAP, BIPAP,: No Physician Orders Ct Ab Pel Wo Con-No Oral Or Iv (8/18/25 08:45) Admit (06/21/25 11:52) Code Status (06/21/25 11:52) Hydrocodone-Acet 5/325mg Tab (Grass Range 5/32 (06/21/25 12:00) Ondansetron Hcl (Zofran) (06/21/25 12:00) Docusate Sodium Capsule (Colace Capsule) (06/21/25 12:00) Complete Blood Count (06/22/25 04:00) Comprehensive Metabolic Panel (06/22/25 04:00) Condition: Serious (06/21/25 11:52) Acetaminophen Tablet (Tylenol Tablet) (06/21/25 12:00) Morphine Sulfate Injection (06/21/25 12:00) Ceftriaxone Ivpb Rocephin (06/22/25 09:00) Metronidazole Ivpb Flagyl (06/21/25 14:00) NS (06/21/25 12:00) NS (06/21/25 12:00) Vital Signs Date Time Temp Pulse Resp B/P (MAP) Pulse Ox O2 Delivery O2 Flow Rate FiO2 06/21/25 10:38 94 Room Air* 0 21 06/21/25 10:01 81 17 98 Room Air* 0 21 06/21/25 10:00 98.7 81 17 94/52 (66) 98 98.7 06/21/25 07:50 98.1 78 16 116/51 98 98.1 Laboratory Tests Test 06/21/25 08:01 White Blood Count 18.5 10^3/uL (4.4-10.8) H Medications Medications Dose Ordered Sig/Jeanne Route Start Time Stop Time Status Last Admin Dose Admin Ceftriaxone Sodium 50 ml @ 100 mls/hr ONCE ONCE IV 06/21/25 08:45 06/21/25 09:14 DC 06/21/25 09:56 100 MLS/HR Metronidazole 100 ml @ 100 mls/hr ONCE ONCE IV 06/21/25 08:45 06/21/25 09:44 DC 06/21/25 10:33 100 MLS/HR Assessment/Plan Assessment/Plan Assessment: Acute abdominal pain, Hepatomegaly, Borderline splenomegaly, Constipation, Leukocytosis, Plan: Admit to Med-Surg, IV antibiotics, Ultrasound of liver, IV hydration, Lactic acid level, Clear liquid diet, PO laxatives, Plan discussed with: Patient, Spouse My Orders Orders - YAEL KEVIN Procedure Category Date Status Time Admit ADMIT 06/21/25 Verified 11:52 Code Status CODE 06/21/25 Verified 11:52 Hydrocodone-Acet PHA 06/21/25 Verified 5/325mg Tab (Grass Range 12:00 Ondansetron Hcl PHA 06/21/25 Verified (Zofran) 12:00 Docusate Sodium PHA 06/21/25 Verified Capsule (Colace 12:00 Complete Blood Count LAB 06/22/25 Verified 04:00 Comprehensive LAB 06/22/25 Verified Metabolic Panel 04:00 Condition: Serious ROSE 06/21/25 Verified 11:52 Acetaminophen Tablet PHA 06/21/25 Verified (Tylenol Tablet) 12:00 Morphine Sulfate PHA 06/21/25 Verified Injection 12:00 Ceftriaxone Ivpb PHA 06/22/25 Verified Rocephin 09:00 Metronidazole Ivpb PHA 06/21/25 Verified Flagyl 14:00 NS PHA 06/21/25 Verified 12:00 NS PHA 06/21/25 Verified 12:00 Date of Service: Jun 21, 2025 Billing Provider: YAEL KEVIN Common Visit Codes: [id number] INP/OBS CARE (MOD) YAEL KEVIN Jun 21, 2025 12:16
--- NOTE | 2025-06-21 12:30 | DVH ---
INDICATION: Abd pain, N/V, Hepatomegaly and borderline splenomegaly TECHNIQUE: Multiple real-time sonographic images were obtained of the right upper quadrant. COMPARISON: None FINDINGS: The liver demonstrates increased echotexture without focal mass lesions. The liver measure s 16.7 cm. There is no intrahepatic or extrahepatic ductal dilatation. The common duct measures 0.3 cm. The gallbladder is without evidence of stone or sludge. The gallbladder wall measures 0.3 cm and is w ithin normal limits. The right kidney measures 11.7 cm. The right kidney is normal in contour, size, and shape. The echoge nicity is normal. There is no hydronephrosis. The pancreas is not well visualized due to overlying bowel gas. IMPRESSION: Hepatic steatosis. Hepatomegaly.
[2025-06-21] MEDS: SODIUM CHLORIDE 0.9% 1,000 ML IV ONE ×2 (13:02→13:52)
[2025-06-21 13:08] LABS: Alanine Aminotransferase 17 U/L (7-40); Albumin 4.3 g/dL (3.2-4.8); Alkaline Phosphatase 103 U/L (46-116); Anion Gap 9 (5-15); BUN/Creatinine Ratio 13.0 (10.0-20.0); Bilirubin, Total 0.5 mg/dL (0.2-1.0); Blood Urea Nitrogen 7 mg/dL (9-23); Calcium 9.0 mg/dL (8.7-10.4); Carbon Dioxide 24 mmol/L (20-31); Chloride 108 mmol/L (98-107); Glucose 93 mg/dL (74-106); Potassium 4.5 mmol/L (3.5-5.1); Sodium 141 mmol/L (136-145); Total Protein 7.2 g/dL (5.7-8.2)
[2025-06-21] MEDS: LACTULOSE 20Gm/30ML SOLN PO ONE (13:52)
[2025-06-21 14:43] VITALS: BP 92/51; PULSE 68; PULSE 70; RESP 18; TEMP 98.4; O2SAT 98
[2025-06-21 14:52] VITALS: BP 92/70; PULSE 70; RESP 18; TEMP 98.4; O2SAT 98
[2025-06-21 17:01] VITALS: BP 101/58; PULSE 65; RESP 20; TEMP 98.3; O2SAT 96
[2025-06-21 21:00] VITALS: BP 112/65; PULSE 60; RESP 18; TEMP 96.5; O2SAT 98
[2025-06-22 01:00] VITALS: BP 105/67; PULSE 55; RESP 20; TEMP 95.4; O2SAT 99
[2025-06-22 05:00] VITALS: BP 101/50; PULSE 62; RESP 20; TEMP 96.9; O2SAT 99
[2025-06-22 06:06] LABS: Hematocrit 32.1 % (36.0-46.0); Nucleated Red Blood Cells % 0.1 %
[2025-06-22 06:12] LABS: Hemoglobin 10.6 g/dL (12.2-16.2); Mean Corpuscular Hemoglobin 25.9 pg (28.0-32.0); Mean Corpuscular Volume 78.8 fL (80.0-100.0)
[2025-06-22 06:15] LABS: Alanine Aminotransferase 14 U/L (7-40); Alkaline Phosphatase 91 U/L (46-116); Anion Gap 9 (5-15); Calcium 8.8 mg/dL (8.7-10.4); Carbon Dioxide 25 mmol/L (20-31); Glucose 90 mg/dL (74-106); Potassium 3.9 mmol/L (3.5-5.1); Sodium 142 mmol/L (136-145)
[2025-06-22 06:16] LABS: Total Protein 6.4 g/dL (5.7-8.2)
[2025-06-22 06:17] LABS: Albumin 3.9 g/dL (3.2-4.8); BUN/Creatinine Ratio 9.3 (10.0-20.0); Blood Urea Nitrogen < 5 mg/dL (9-23); Chloride 108 mmol/L (98-107)
[2025-06-22 06:18] LABS: Bilirubin, Total 0.6 mg/dL (0.2-1.0)
[2025-06-22] MEDS ORDERED: MORPHINE SULFATE INJ 2 MG/ml SYRG IV PRN (08:30)
[2025-06-22] MEDS ORDERED: HYDROcodone-ACET 5/325MG TAB PO PRN (08:30)
[2025-06-22] MEDS ORDERED: ONDANSETRON HCL 4 MG/2 ML VIAL IV PRN (08:30)
[2025-06-22] MEDS ORDERED: DOCUSATE SOD 100 MG CAP PO PRN (08:30)
[2025-06-22] MEDS ORDERED: ACETAMINOPHEN 325 MG TAB PO PRN (08:30)
[2025-06-22] MEDS: cefTRIAXone 1GM/50ML D5W 50 ML IV SCH (08:36)
[2025-06-22 08:50] VITALS: PULSE 52; RESP 18; O2SAT 98
[2025-06-22] MEDS ORDERED: cefTRIAXone 1GM/50ML D5W 50 ML IV SCH (09:00)
--- NOTE | 2025-06-22 14:33 | DVHDSRES ---
Discharge Summary Date of Admission Resident Creating Document: LULÚ KEY RESIDENT Jun 21, 2025 at 11:52 Date of Discharge: Jun 22, 2025 Admitting Diagnosis acute abdominal pain Labs/Diagnostic Data: Laboratory Results Test 06/22/25 04:45 06/21/25 16:25 06/21/25 08:04 White Blood Count 6.7 10^3/uL (4.4-10.8) Red Blood Count 4.08 10^6/uL (4.0-5.20) Hemoglobin 10.6 g/dL (12.2-16.2) Hematocrit 32.1 % (36.0-46.0) Mean Corpuscular Volume 78.8 fL (80.0-100.0) Mean Corpuscular Hemoglobin 25.9 pg (28.0-32.0) Mean Corpuscular Hemoglobin Concent 32.9 g/dL (32.0-36.0) Red Cell Distribution Width 16.1 % (11.8-14.3) Platelet Count 313 10^3/uL (140-450) Mean Platelet Volume 8.8 fL (6.9-10.8) Neutrophils (%) (Auto) 55.5 % (37.0-80.0) Lymphocytes (%) (Auto) 37.1 % (10.0-50.0) Monocytes (%) (Auto) 5.5 % (0.0-12.0) Eosinophils (%) (Auto) 1.6 % (0.0-7.0) Basophils (%) (Auto) 0.3 % (0.0-2.0) Neutrophils # (Auto) 3.7 10 ^3/uL (1.6-8.6) Lymphocytes # (Auto) 2.5 10 ^3/uL (0.4-5.4) Monocytes # (Auto) 0.4 10 ^3/uL (0-1.3) Eosinophils # (Auto) 0.1 10 ^3/uL (0-0.8) Basophils # (Auto) 0 10 ^3/uL (0-0.2) Nucleated Red Blood Cells 0.1 % Sodium Level 142 mmol/L (136-145) Potassium Level 3.9 mmol/L (3.5-5.1) Chloride Level 108 mmol/L (98-107) Carbon Dioxide Level 25 mmol/L (20-31) Anion Gap 9 (5-15) Blood Urea Nitrogen < 5 mg/dL (9-23) Creatinine 0.54 mg/dL (0.550-1.02) Glomerular Filtration Rate Calc 127 mL/min (>90) BUN/Creatinine Ratio 9.3 (10.0-20.0) Serum Glucose 90 mg/dL (74-106) Calcium Level 8.8 mg/dL (8.7-10.4) Total Bilirubin 0.6 mg/dL (0.2-1.0) Aspartate Amino Transferase (AST) 15 U/L (13-40) Alanine Aminotransferase (ALT) 14 U/L (7-40) Alkaline Phosphatase 91 U/L (46-116) Total Protein 6.4 g/dL (5.7-8.2) Albumin 3.9 g/dL (3.2-4.8) Lactic Acid Level 0.9 mmol/L (0.4-2.0) Urine Color Yellow (Yellow) Urine Clarity Clear (Clear) Urine pH 5.5 (5.0-9.0) Urine Specific [place] 1.021 (1.001-1.035) Urine Protein Negative (Negative) Urine Ketones Negative (Negative) Urine Blood 1+ /uL (Negative) Urine Nitrite Negative (Negative) Urine Bilirubin Negative (Negative) Urine Urobilinogen Normal mg/dL (Negative) Urine Leukocyte Esterase Negative /uL (Negative) Urine RBC 3 /hpf (0 - 4) Urine Microscopic WBC 1 /HPF (0-5) Urine Squamous Epithelial Cells Few /hpf (<5) Urine Bacteria None seen /hpf (None Seen) Urine Mucus Few (None Seen) Urine Glucose Normal mg/dL (Normal) Other Laboratory Tests 06/22/25 04:45 Brief Hx & Hospital Course: The patient came to the ER with the complaint of abdominal pain. She had acute onset, intense abdominal pain mostly in the epigastric area which woke her up from sleep. She also had some nausea and 2 episodes of vomiting. On admission her WBC count was 18.5 which subsequently lowered down to 6.[address] A CT abdomen was done which showed hepatic steatosis and hepatomegaly along with borderline splenomegaly. The patient has a recent history of section 4 months back. She had constipation on admission but it resolved over the course of her stay and she had 2 bowel movements on the day after admission. The risks of leaving versus the benefits of staying were explained to the patient on multiple occasions and the patient demonstrated understanding of this. The patient left AMA before she could be evaluated by the attending. Past medical history: unremarkable Past surgical history: section on 02/15/2025 Home medications: none Social & Personal history: lives at home with family Allergies: Patient seen and examined at bedside. Patient is alert and oriented to time, place person and responding to all questions. Eyes: No Pain, No Vision change, No Conjunctivae inflammation, No Eyelid inflammation, No Redness ENT: No Ear pain, No Ear discharge, No Nose pain, No Nose discharge, No Nose congestion, No Mouth pain, No Mouth swelling, No Throat pain, No Throat swelling Cardiovascular: No Chest Pain, No Palpitations, No Orthopnea, No Paroxysmal No Dyspnea, No Edema, No Lt Headedness Respiratory: No Cough, No Dry, No Shortness of breath, No SOB with exertion, No Wheezing, No Hemoptysis, No Pleuritic Pain, No Sputum Gastrointestinal: No Nausea, No Vomiting, No Abdominal Pain, No Diarrhea, No Constipation, No Melena, No Hematochezia Genitourinary: No Dysuria, No Frequency, No Incontinence, No Hematuria, No Retention Condition at Discharge: Undetermined Final Diagnosis/Problems List acute abdominal pain hepatomegaly with hepatic steatosis splenomegaly Discharge Disposition: AMA Discharge Instruct/Medications Diet: Regular Activity: No Restrictions, As Tolerated Follow Up/Referral: follow up with PCP in 1-2 weeks No Active Prescriptions or Reported Meds Discharge Statement: "Patient was advised to return to the ER or call 911 if any headaches, dizziness, shortness of breath, chest pain, abdominal pain, bleeding, fevers, or worsening of medical condition. Patient was counseled about treatment plan, medications, possible side effects, patientverbalized understanding. All questions were answered to the best of my ability. This discharge took greater then 30 minutes in planning, reviewing documentation, counseling the patient, and discussing with other team members." ASSESSMENT ASSESSMENT Hospital Course The patient came to the ER with the complaint of abdominal pain. She had acute onset, intense abdominal pain mostly in the epigastric area which woke her up from sleep. She also had some nausea and 2 episodes of vomiting. On admission her WBC count was 18.5 which subsequently lowered down to 6.[address] A [address] abdomen was done which showed hepatic steatosis and hepatomegaly along with borderline splenomegaly. The patient has a recent history of section 4 months back. She had constipation on admission but it resolved over the course of her stay and she had 2 bowel movements on the day after admission. The patient left AMA before she could be evaluated by the attending. Assessment acute abdominal pain hepatomegaly with hepatic steatosis splenomegaly Date of Service: Jun 22, 2025 Billing Provider: LILIANE DALEY MD Common Visit Codes: 14940-CQP/OBS DISCH DAY >30min LULÚ KEY RESIDENT Jun 22, 2025 14:33 LILIANE DALEY MD Jun 25, 2025 21:04
== END 2025-06-22 11:14 | disposition left against medical advice (07) | DRG 247 ==
LOC: ER 07:48 → OVERFLOW 11:52 → ER 11:57 → CENTRAL 22:05
PROVIDERS: ADMIT Internal Medicine Geriatric Medicine; ATTEND Internal Medicine Geriatric Medicine
DX: K56.41 Fecal impaction (principal); K76.0 Fatty (change of) liver, not elsewhere classified; R16.2 Hepatomegaly with splenomegaly, not elsewhere classified; Z53.29 Procedure and treatment not carried out because of patient's decision for other reasons; D72.829 Elevated white blood cell count, unspecified
CPT/HCPCS: 36415; 74176; 76705; 80048; 80053; 81001; 83605; 85025; 96365; 96366; G0378; J3490